=== PATIENT | male | born 1955 | race Caucasian/White ===

== ENCOUNTER 2025-06-23 17:03 | Inpatient (IN) | payer MEDICARE, OTHER ==
[~2025-06-23] VITALS: Ht 167.6 cm; Wt 59.0 kg
[2025-06-23 23:21] LABS: PLATELET COUNT (AUTO) 444 K/uL (152-348); RED BLOOD CELL COUNT(AUTO) 4.84 MIL/uL (4.06-5.63); RED CELL DISTRIBUTION WIDTH 21.1 % (12.1-16.2); WHITE BLOOD COUNT (AUTO) 6.0 K/uL (3.6-10.2)
[2025-06-23 23:27] LABS: CREATININE 0.7 mg/dL (0.6-1.3); SODIUM SERUM 138.0 mmol/L (136-145); UREA NITROGEN, BLOOD 23.0 mg/dL (7-18)
[2025-06-23 23:32] LABS: ETHANOL < 3 MG/DL (0-10)
[2025-06-23 23:33] LABS: ASPARTATE AMINOTRANSFERASE 16.0 U/L (15-37); TOTAL PROTEIN, SERUM 7.5 g/dL (6.4-8.2)
[2025-06-24 00:09] LABS: EOSINOPHILS % (MANUAL) 3 % (0-8); NEUTROPHILS % (MANUAL) 61 % (42-75)
[2025-06-24 00:10] LABS: LYMPHOCYTES % (MANUAL) 28 % (20-40); MONOCYTES % (MANUAL) 8 % (2-10)
[2025-06-24 00:11] LABS: PLATELET ESTIMATE SLIGHT INCREASED
[2025-06-24] MEDS ORDERED: ACET-3117 PO (00:55)
[2025-06-24] MEDS ORDERED: OLAN5TAB3 PO (00:55)
[2025-06-24] MEDS ORDERED: SENN8.6T19 PO (00:55)
[2025-06-24] MEDS ORDERED: FERR-56 PO (00:55)
[2025-06-24] MEDS ORDERED: FOLI1TAB27 PO (00:55)
[2025-06-24] MEDS ORDERED: PANT40TA2 PO (00:55)
[2025-06-24 01:04] VITALS: BP 124/74
[2025-06-24 01:50] VITALS: BP 119/81; TEMP 97.4; O2SAT 100
[2025-06-24] MEDS ORDERED: TEMAZEPAM 7.5 MG CAPSULE PO PRN (02:00)
[2025-06-24] MEDS ORDERED: LORAZEPAM 1 MG TABLET PO PRN (02:00)
[2025-06-24] MEDS ORDERED: MAGNESIUM HYDROXIDE 30 ML LIQUID UDC PO PRN (02:00)
[2025-06-24] MEDS ORDERED: MAG HYDROX/AL HYDROX/SIMETH 30 ML LIQUID UDC PO PRN (02:00)
[2025-06-24] MEDS ORDERED: TEMAZEPAM 15 MG CAPSULE PO PRN (05:45)
[2025-06-24] MEDS ORDERED: ACET-2154 PO (08:59)
[2025-06-24] MEDS: QUETIAPINE FUMARATE 25 MG TABLET PO SCH (12:44)
[2025-06-24] MEDS: PANTOPRAZOLE SODIUM 40 MG TABLET.DR PO SCH (17:00)
[2025-06-25] MEDS: LORAZEPAM 1 MG TABLET PO PRN (03:27)
[2025-06-25] MEDS: FOLIC ACID 1 MG TABLET PO SCH (09:00)
[2025-06-25] MEDS: FERROUS SULFATE 325 MG TABEC PO SCH (09:00)
[2025-06-25] MEDS: SENNOSIDES 1 TABLET PO SCH (09:00)
[2025-06-25] MEDS: OLANZAPINE 2.5 MG TABLET PO SCH (17:00)
[2025-06-25] MEDS: ACETAMINOPHEN 325 MG TABLET PO PRN (21:09)
[2025-06-26] MEDS: ENSURE ENLIVE (VAN) 240 ML LIQUID PO SCH (08:36)
[2025-06-27] MEDS ORDERED: OLANZAPINE 2.5 MG TABLET PO SCH (17:00)
[2025-06-27] MEDS: OLANZAPINE 5 MG TABLET PO SCH (20:55)
[2025-06-28 08:38] VITALS: BP 115/73; TEMP 98.3; O2SAT 96
[2025-06-28 20:00] VITALS: BP 148/99; TEMP 98.3; O2SAT 94
[2025-06-29 07:33] VITALS: BP 152/71; O2SAT 97
[2025-06-29] MEDS: LORAZEPAM 2 MG/1 ML VIAL IM ONE (13:31)
[2025-06-29] MEDS: diphenhydrAMINE 50 MG/1 ML VIAL IM ONE (13:32)
[2025-06-29] MEDS: HALOPERIDOL LACTATE 5 MG/1 ML VIAL IM ONE (13:32)
[2025-06-29 16:09] VITALS: BP 105/58; TEMP 98.7; O2SAT 97
[2025-06-29 20:00] VITALS: BP 90/61; TEMP 98.1; O2SAT 94
[2025-06-30 07:59] VITALS: BP 109/69; TEMP 97.8; O2SAT 96
== END 2025-06-30 13:30 | DRG 885 ==
LOC: ER 17:22 → GPS 06-24 00:30
PROVIDERS: ADMIT Psychiatry & Neurology Psychiatry; ATTEND Nurse Practitioner Acute Care
DX: F25.9 Schizoaffective disorder, unspecified (principal); E44.1 Mild protein-calorie malnutrition; D64.9 Anemia, unspecified; Z66 Do not resuscitate; K21.9 Gastro-esophageal reflux disease without esophagitis; D63.8 Anemia in other chronic diseases classified elsewhere; Z91.148 Patient's other noncompliance with medication regimen for other reason; F94.0 Selective mutism; I11.9 Hypertensive heart disease without heart failure; E88.09 Other disorders of plasma-protein metabolism, not elsewhere classified; F31.9 Bipolar disorder, unspecified; M62.59 Muscle wasting and atrophy, not elsewhere classified, multiple sites; R13.10 Dysphagia, unspecified
CPT/HCPCS: 36415; 70030-TC; G0480; J1200; J1630; J2060

== ENCOUNTER 2025-09-30 22:52 | Inpatient (IN) | payer MEDICARE, OTHER ==
[~2025-09-30] VITALS: Ht 172.7 cm; Wt 49.2 kg
[~2025-09-30 22:52] MED LIST: ACET-2154 PO; FERR-56 PO; FOLI1TAB27 PO; PANT40TA2 PO; SENN8.6T19 PO
[2025-09-30 23:00] VITALS: BP 128/70; TEMP 98.2; O2SAT 93
[2025-10-01] MEDS ORDERED: LORAZEPAM 0.5 MG TABLET PO PRN ×2 (00:30)
[2025-10-01] MEDS ORDERED: MAG HYDROX/AL HYDROX/SIMETH 30 ML LIQUID UDC PO PRN (00:30)
[2025-10-01] MEDS ORDERED: TEMAZEPAM 7.5 MG CAPSULE PO PRN ×2 (00:30)
[2025-10-01] MEDS ORDERED: MAGNESIUM HYDROXIDE 30 ML LIQUID UDC PO PRN ×2 (00:30→12:00)
[2025-10-01] MEDS: BLOOD SUGAR DIAGNOSTIC 1 EACH STRIP VI ONE (01:05)
[2025-10-01] MEDS ORDERED: BISA10SU61 RC (11:12)
[2025-10-01] MEDS ORDERED: DOCU-141 PO (11:12)
[2025-10-01] MEDS ORDERED: NA P133E RC (11:13)
[2025-10-01] MEDS ORDERED: MAGN400O6 PO (11:14)
[2025-10-01] MEDS ORDERED: MULT-365 PO (11:16)
[2025-10-01] MEDS ORDERED: OLAN5TAB70 PO (11:17)
[2025-10-01] MEDS ORDERED: ACET-3752 PO (11:19)
[2025-10-01] MEDS ORDERED: ASCO500C18 PO (11:19)
[2025-10-01] MEDS ORDERED: ACETAMINOPHEN 325 MG TABLET-SA PATIENTS-PAIN ONLY PO PRN ×2 (12:00)
[2025-10-01] MEDS ORDERED: FLEET ENEMA 133 ML BOTTLE RC PRN (12:00)
[2025-10-01] MEDS ORDERED: BISACODYL 10 MG SUPP.RECT RC PRN (12:00)
[2025-10-01] MEDS: QUETIAPINE FUMARATE 25 MG TABLET PO SCH (17:00)
[2025-10-01] MEDS: ASCORBIC ACID 500 MG TABLET PO SCH (17:00)
[2025-10-01] MEDS ORDERED: OLANZAPINE 5 MG TABLET PO SCH (21:00)
[2025-10-01] MEDS: PANTOPRAZOLE SODIUM 40 MG TABLET.DR PO SCH (21:15)
[2025-10-02 07:48] LABS: ASPARTATE AMINOTRANSFERASE 23 U/L (15-37); CREATININE 0.6 mg/dL (0.6-1.3); SODIUM SERUM 140 mmol/L (136-145); TOTAL PROTEIN, SERUM 7.4 g/dL (6.4-8.2); UREA NITROGEN, BLOOD 29 mg/dL (7-18)
[2025-10-02] MEDS: REMEDY ESSENTIAL ZINC PASTE 113 GM TOP PRN (07:50)
[2025-10-02] MEDS: FOLIC ACID 1 MG TABLET PO SCH (08:20)
[2025-10-02] MEDS: FERROUS SULFATE 325 MG TABEC PO SCH (08:20)
[2025-10-02] MEDS: DOCUSATE SODIUM 100 MG CAPSULE PO SCH (08:20)
[2025-10-02] MEDS: MULTIVIT, IRON, MIN NO. 8, FA TABLET PO SCH (08:20)
[2025-10-02] MEDS: SENNOSIDES 1 TABLET PO SCH (08:20)
[2025-10-02 08:38] VITALS: BP 128/64; TEMP 98.2; O2SAT 93
[2025-10-02] MEDS ORDERED: MULTIVITAMINS W MINERALS PO SCH (09:00)
[2025-10-02 16:21] VITALS: BP 102/70; TEMP 98.2; O2SAT 93
[2025-10-02] MEDS: QUETIAPINE FUMARATE 25 MG TABLET PO SCH (20:36)
[2025-10-02] MEDS: LORAZEPAM 1 MG TABLET PO PRN (23:01)
[2025-10-03 08:22] VITALS: BP 122/64; TEMP 98.2; O2SAT 93
[2025-10-03] MEDS: ENSURE ENLIVE (VAN) 240 ML LIQUID PO SCH (12:27)
[2025-10-03 16:19] VITALS: BP 122/81; TEMP 98.2; O2SAT 93
[2025-10-03 20:12] VITALS: BP 126/76; TEMP 98.4; O2SAT 96
[2025-10-04 08:43] VITALS: BP 144/84; TEMP 98.2; O2SAT 93
[2025-10-04] MEDS: QUETIAPINE FUMARATE 25 MG TABLET PO SCH (08:59)
[2025-10-04 17:04] VITALS: BP 93/51; TEMP 98.2; O2SAT 93
[2025-10-05] MEDS: QUETIAPINE FUMARATE 25 MG TABLET PO SCH (20:28)
[2025-10-06 07:57] LABS: ASPARTATE AMINOTRANSFERASE 25 U/L (15-37); CREATININE 0.6 mg/dL (0.6-1.3); SODIUM SERUM 142 mmol/L (136-145); TOTAL PROTEIN, SERUM 7.2 g/dL (6.4-8.2); UREA NITROGEN, BLOOD 26 mg/dL (7-18)
[2025-10-06 08:31] LABS: PLATELET COUNT (AUTO) 377 K/uL (152-348); RED BLOOD CELL COUNT(AUTO) 4.09 MIL/uL (4.06-5.63); RED CELL DISTRIBUTION WIDTH 22.6 % (12.1-16.2); WHITE BLOOD COUNT (AUTO) 6.3 K/uL (3.6-10.2)
[2025-10-06 08:49] VITALS: BP 139/81; TEMP 98.2; O2SAT 98
[2025-10-06 15:16] VITALS: BP 125/84; TEMP 98.2; O2SAT 96
[2025-10-06] MEDS: QUETIAPINE FUMARATE 25 MG TABLET PO SCH (17:00)
[2025-10-07 07:42] VITALS: BP 145/72; TEMP 98.2; O2SAT 96
[2025-10-07] MEDS: ONDANSETRON ODT 4 MG TAB.RAPDIS SL PRN (08:30)
[2025-10-08 08:27] VITALS: BP 125/77; TEMP 98.2; O2SAT 96
[2025-10-08 15:42] VITALS: BP 121/74; TEMP 98; O2SAT 96
[2025-10-09 08:41] VITALS: BP 113/69; TEMP 98.2; O2SAT 96
[2025-10-09 16:28] VITALS: BP 110/73; TEMP 98; O2SAT 96
[2025-10-09] MEDS: QUETIAPINE FUMARATE 25 MG TABLET PO SCH (21:00)
[2025-10-10 08:40] VITALS: BP 147/88; TEMP 98.2; O2SAT 96
[2025-10-10 16:31] VITALS: BP 100/75; TEMP 98; O2SAT 96
[2025-10-10 20:00] VITALS: BP 90/60; TEMP 97.9; O2SAT 94
[2025-10-11 08:02] VITALS: BP 109/56; TEMP 98; O2SAT 96
[2025-10-11 15:27] VITALS: BP 119/67; TEMP 98.2; O2SAT 99
[2025-10-11 20:00] VITALS: BP 110/80; TEMP 99.3; O2SAT 94
[2025-10-11] MEDS: QUETIAPINE FUMARATE 25 MG TABLET PO SCH (20:38)
[2025-10-12 08:45] VITALS: BP 148/96; TEMP 98.2; O2SAT 96
[2025-10-12 16:46] VITALS: BP 137/69; TEMP 98.2; O2SAT 96
[2025-10-12 20:00] VITALS: BP 97/68; TEMP 99.8; O2SAT 95
[2025-10-13 08:03] VITALS: BP 115/81; TEMP 97.8; O2SAT 94
[2025-10-13 16:10] VITALS: BP 100/68; TEMP 97.9; O2SAT 94
[2025-10-13 20:14] VITALS: BP 106/66; TEMP 97.8; O2SAT 93
[2025-10-14 09:42] VITALS: BP 125/52; TEMP 98; O2SAT 96
[2025-10-14] MEDS: FAMOTIDINE 20 MG TABLET PO SCH (12:22)
[2025-10-14 15:10] VITALS: BP 123/66; TEMP 98; O2SAT 96
[2025-10-14] MEDS: QUETIAPINE FUMARATE 25 MG TABLET PO SCH (16:54)
[2025-10-14 20:38] VITALS: BP 122/64; TEMP 97.8; O2SAT 96
[2025-10-15 09:08] VITALS: BP 130/80; TEMP 97.8; O2SAT 96
[2025-10-15 15:20] VITALS: BP 157/77; TEMP 98; O2SAT 96
[2025-10-15 20:19] VITALS: BP 151/76; TEMP 97.9; O2SAT 96
[2025-10-16] MEDS: TEMAZEPAM 15 MG CAPSULE PO PRN
[2025-10-16 08:23] VITALS: BP 130/79; TEMP 97.8; O2SAT 96
[2025-10-16 16:15] VITALS: BP 111/71; TEMP 98; O2SAT 96
[2025-10-16] MEDS: QUETIAPINE FUMARATE 100 MG TABLET PO SCH (20:59)
[2025-10-16] MEDS ORDERED: QUETIAPINE FUMARATE 25 MG TABLET PO SCH (21:00)
[2025-10-16] MEDS: ACETAMINOPHEN 325 MG TABLET PO PRN (21:00)
[2025-10-16 21:27] VITALS: BP 92/57; TEMP 102; O2SAT 92
[2025-10-17 08:54] VITALS: BP 130/79; TEMP 97.8; O2SAT 96
[2025-10-17 16:35] VITALS: BP 127/67; TEMP 98; O2SAT 96
[2025-10-17 20:00] VITALS: BP 100/63; TEMP 97.6; O2SAT 93
[2025-10-18 08:00] VITALS: BP 115/77; TEMP 97.6; O2SAT 98
== END 2025-10-18 13:15 | DRG 885 ==
LOC: GPS 22:52
PROVIDERS: ADMIT Psychiatry & Neurology Psychiatry; ATTEND Nurse Practitioner Family
DX: F29 Unspecified psychosis not due to a substance or known physiological condition (principal); E44.1 Mild protein-calorie malnutrition; F03.911 Unspecified dementia, unspecified severity, with agitation; E88.09 Other disorders of plasma-protein metabolism, not elsewhere classified; D64.9 Anemia, unspecified; F20.9 Schizophrenia, unspecified; F03.94 Unspecified dementia, unspecified severity, with anxiety; F03.92 Unspecified dementia, unspecified severity, with psychotic disturbance; E86.0 Dehydration; K21.9 Gastro-esophageal reflux disease without esophagitis; Z79.899 Other long term (current) drug therapy; Z91.148 Patient's other noncompliance with medication regimen for other reason
CPT/HCPCS: 36415; 83735; 84100; 85025; Q0162